=== PATIENT | female | born 1985 | race Caucasian/White ===

== ENCOUNTER 2016-08-22 19:17 | Emergency (ER) | payer OTHER ==
[~2016-08-22] VITALS: Ht 162.6 cm; Wt 86.0 kg
[~2016-08-22 19:17] MED LIST: LORA10CA PO; SERT100T9 PO
[2016-08-22 19:23] VITALS: BP 127/73; PULSE 90; RESP 18; O2SAT 97
--- NOTE | 2016-08-22 20:49 | ED.REPORT ---
HPI-Back Pain Under 40 Date of Service Aug 22, 2016 ED Provider: Radha Howard Pt is an otherwise healthy 30 year old female who presents to the ED complaining of back pain onset this morning when she woke up. She c/o associated bilateral hip pain, mild nausea, and abdominal pain. She denies dysuria, fever, vomiting, and diarrhea. She reports that she presented to urgent care prior to arrival at the ED and they determined that her WBC was elevated. Nursing Notes Stated Complaint: BACK PAIN Chief Complaint: Back Pain or Injury Nursing Notes Reviewed: Yes Allergies: Coded Allergies: No Known Allergies (Verified Allergy, Unknown, 09/12/15) Scheduled Loratadine (Claritin) 10 Mg Capsule 10 MG PO DAILY Sertraline HCl (Sertraline) 100 Mg Tablet 100 MG PO DAILY General Time Seen by MD: 20:48 Chief Complaint Back pain Hx Obtained From: Patient Arrived By: Walk-in Sudden in Onset?: No Onset Occurred: 5 - 8 hours ago Symptom Duration: Since onset Quality: Dull, Painful Severity: Current: Moderate Severity: Maximum: Moderate Recent Healthcare: Recent doctor visit Similar Sx Previous: No Past Medical History Past Medical History anxiety Denies: Congestive heart failure, Diabetes mellitus, Hypertension Reports: Depression Past Surgical History None reported Smoking History Never Smoker Social History Alcohol Use: Denies alcohol use Drug Use: Denies drug use Other Social History: Ambulatory Status Independent Review of Systems Constitutional: Denies: Fever GI: Reports: Abdominal pain, Nausea, Denies: Diarrhea, Vomiting Female: Denies: Dysuria Musculoskeletal: Reports: Back pain, Joint pain, Lumbar pain, Thoracic pain Complete sys rev & neg: except as marked. Physical Exam Initial Vital Signs Vital Signs (First) Date Time Temp Pulse Resp B/P Pulse Ox O2 Delivery O2 Flow Rate FiO2 08/22/16 19:23 37.1 90 18 127/73 97 Room Air Initial VS: Reviewed Head / Eyes: Atraumatic, Normocephalic Neck: Supple, Full range of motion Respiratory: Breath sounds normal, Clear to auscultation, No respiratory distress Cardiovascular: Regular rate & rhythm, Heart sounds normal, Intact distal pulses Extremities: Vascular intact, Neuro intact Skin: Warm, Dry, No cyanosis Psychiatric: Mood/affect normal, Behavior normal, Normal thought content General/Constitutional: Awake, Alert, Cooperative Back: Atraumatic, Full range of motion Neurologic: Oriented X3, Speech NL, No motor deficits, No sensory deficits Abdomen: Atraumatic, Soft Mid left flank tenderness. Interpretation & Diagnostics CT KUB: IMPRESSION: No CT findings to explain left flank and lower abdominal pain. Dictated by: Gordy Huynh M.D. on 08/22/2016 at 22:08 Lab Results Interpretation Result Diagram: 08/22/16212408/22/162124 Test 08/22/16 21:25 08/22/16 21:36 White Blood Count 7.2th/mm3 (3.8-10.1) Red Blood Count 4.69mil/mm3 (3.90-5.20) Hemoglobin 14.3g/dL (12.0-15.6) Hematocrit 41.3% (35.0-46.0) Mean Corpuscular Volume 88.1fL (81-100) Mean Corpuscular Hemoglobin 30.5pg (27.0-35.0) Mean Corpuscular Hemoglobin Concent 34.6% (32.0-37.0) Red Cell Distribution Width 12.8% (12.3-15.4) Platelet Count 211bil/L (150-400) Neutrophils (%) (Auto) 49.7% (40-74) Lymphocytes (%) (Auto) 38.5% (14-46) Monocytes (%) (Auto) 4.2% (4-12) Eosinophils (%) (Auto) 7.1% (0-5) Basophils (%) (Auto) 0.4% (0-3) Sodium Level 139mEq/L (134-144) Potassium Level 3.8mEq/L (3.5-5.2) Chloride Level 102mEq/L (97-108) Carbon Dioxide Level 23mmol/L (18-29) Blood Urea Nitrogen 11mg/dL (6-20) Creatinine 0.54mg/dL (0.57-1.00) Estimat Glomerular Filtration Rate 193mL/min (>59) Glucose Level 113mg/dL (60-99) Calcium Level 9.3mg/dL (8.5-10.1) Total Bilirubin 0.2mg/dL (0.0-1.2) Aspartate Amino Transf (AST/SGOT) 20U/L (0-50) Alanine Aminotransferase (ALT/SGPT) 16U/L (0-32) Alkaline Phosphatase 68U/L (25-150) Total Protein 7.1g/dL (6.4-8.4) Albumin 4.1g/dL (3.4-5.0) Human Chorionic Gonadotropin, Qual 0.500 (Negative) Hold Mishra Top Tube Received (Received) Urine Color Straw (YELLOW) Urine Appearance Clear (CLEAR,HAZY) Urine pH 6.5 (5.0-8.0) Urine Specific [place] 1.006 (1.003-1.035) Urine Protein Negativemg/dL (NEG,TRACE) Urine Glucose (UA) Negativemg/dL (NEGATIVE) Urine Ketones Negativemg/dL (NEGATIVE) Urine Occult Blood Trace (NEGATIVE) Urine Nitrite Negative (NEGATIVE) Urine Bilirubin Negative (NEGATIVE) Urine Urobilinogen Normalmg/dL (NORMAL) Urine Leukocyte Esterase Trace (NEGATIVE) Urine RBC 3-10/hpf (0-2) Urine WBC 0-5/hpf (0-5) Urine Epithelial Cells Few/hpf (NONE-MOD) Urine Crystals None seen (NONE SEEN) Urine Bacteria Few/hpf (NONE-FEW) Urine Hyaline Casts None/lpf (NONE) Urine Granular Casts None seen (NONE SEEN) Urine Waxy Casts None seen (NONE SEEN) Urine Red Blood Cell Casts None seen (NONE SEEN) Urine White Blood Cell Casts None seen (NONE SEEN) Urine Mucus Present (None Seen) Urine Trichomonas None seen (NONE SEEN) Urine Yeast None (NONE SEEN) Urinalysis Comment None Urine Culture Reflexed Indicated Re-Eval/Medical Decision Med Decision/Clinical Course CT KUB was very reassuring. Laboratory work is reassuring. Urine sample looks like there is an infection. As such we will treat her with a course of Keflex. Short course of opiates provided for pain. was ruled out. Recommend close outpatient follow-up. Routine opiate warnings given. Source of Hx: Old records Re-Evaluation/Progress : Patient Status: Condition improved, Complete relief, Pain resolved, Drinking well without N/V Evaluation: Capillary refill normal, Normal peripheral pulses, Extremities warm, Lungs clear, Abdomen soft/non-tender, Mental status normal, Neurologic nonfocal Counseled Regarding: Diagnosis, Lab results, Need for follow-up, When/why to return to ED Discharge & Departure Impression: Primary Impression: Back pain Back pain location: back pain in unspecified location Chronicity: unspecified Back pain laterality: unspecified Qualified Code: M54.9 - Dorsalgia, unspecified Additional Impression: UTI (urinary tract infection) Urinary tract infection type: site unspecified Hematuria presence: without hematuria Qualified Code: N39.0 - Urinary tract infection, site not specified Disposition: Home All VS Reviewed: Yes Condition: Stable Patient Instructions: Back Pain (ED), Urinary Tract Infection in Women (ED) Additional Instructions: Your lab work is reassuring and your cat scan is otherwise normal. Take 1-2 Percocet every 6 hours as needed. Do not drive or drink alcohol or consume acetaminophen while taking Percocet. Take Keflex 3x daily for 7 days. Take Motrin as directed for moderate pain. Follow up with your primary care provider in 2-3 days. The urine culture will be available in 3 days, follow up with this as well or have your primary care provider follow up. Return to the Emergency Department for any new or worsening symptoms. Referrals: Nayely Sampson (PCP) (Family) Juventino Attestation Portions of this note were transcribed by Kindra Llamas. I, Dr. Garcia personally performed the history, physical exam and medical decision-making; I reviewed and confirmed the accuracy of the information in the transcribed note. Signed by: Juventino Marin, 08/22/16 and 21:50. copies to: Nayely Sampson Todd P DO Aug 22, 2016 20:49 Kindra Bermudez Aug 22, 2016 20:56
[2016-08-22 21:40] LABS: BASOPHILS % (AUTO) 0.4 % (0-3); EOSINOPHILS % (AUTO) 7.1 % (0-5); MONOCYTES % (AUTO) 4.2 % (4-12); Mean Corpuscular Hemoglobin 30.5 pg (27.0-35.0); Mean Corpuscular Volume 88.1 fL (81-100); NEUTROPHILS % (AUTO) 49.7 % (40-74); Platelet Count 211 bil/L (150-400)
[2016-08-22 21:51] LABS: APPEARANCE,URINE CLEAR (CLEAR,HAZY); COLOR,URINE STRAW (YELLOW); OCCULT BLOOD,URINE TRACE (NEGATIVE); PH,URINE 6.5 (5.0-8.0); UROBILINOGEN,URINE NORMAL (NORMAL)
--- NOTE | 2016-08-22 22:13 | DRSVH ---
PROCEDURE: CT KUB ([id number]) INDICATIONS: left flank and left lower abdominal pain TECHNIQUE: Noncontrast 5 mm thick sections acquired from the diaphragms to the symphysis. 5 mm thick coronal an d sagittal reformats were then performed. For radiation dose reduction, the following was used: aut omated exposure control, adjustment of mA and/or kV according to patient size. COMPARISON: None. FINDINGS: Image quality: Excellent. Lung bases: Lung bases are clear. Heart size is normal. Tiny hiatal hernia. Urinary system: Both kidneys are normal in size. No kidney stones. No hydronephrosis or perinephri c fat stranding. Both ureters appear non-dilated throughout their expected courses. Bladder wall th ickness is normal; no calcified bladder stones. Uterus is normal. There is an IUD. Other solid organs: Liver and spleen are normal in size. Gallbladder is normal. Pancreas is normal in contours. No adrenal nodules. Peritoneum and bowel: Unenhanced bowel loops demonstrate normal wall thickness and caliber. No free fluid or air. Nodes and vessels: No retroperitoneal or mesenteric adenopathy by size criteria. Aorta and inferior vena cava are normal in caliber. Abdominal wall: No ventral hernias. Pelvis: No free pelvic fluid. No inguinal hernias or adenopathy. Bones: No suspicious bony lesions. No vertebral body compression fractures. IMPRESSION: No CT findings to explain left flank and lower abdominal pain. Dictated by: Gordy Huynh M.D. on 08/22/2016 at 22:08 Approved by: Gordy Huynh M.D. on 08/22/2016 at 22:11
[2016-08-22] MEDS ORDERED: _oxyCODONE/APAP 5-325 mg Tablet PO PRN (23:00)
[2016-08-22 23:33] VITALS: BP 114/78; PULSE 62; RESP 16; O2SAT 98
== END 2016-08-22 23:33 | disposition home or self-care (01) ==
LOC: SED 19:17
DX: N39.0 Urinary tract infection, site not specified (principal); F41.9 Anxiety disorder, unspecified; F32.9 Major depressive disorder, single episode, unspecified
CPT/HCPCS: 36415; 74176; 80053; 81000; 81025; 84703; 85025; 87086; 87088; 96372; 99285; J1885